=== PATIENT | male | born 1970 | race Two or more races ===

== ENCOUNTER 2017-06-10 10:27 | Day surgery (SDC) | payer BC ==
[2017-06-10] MEDS ORDERED: MORPHINE SULFATE PF 10 MG/10 ML AMPUL IV ONE (12:39)
[2017-06-10] MEDS ORDERED: BUPIVACAINE 0.25% 30 ML VIAL ONE (12:39)
[2017-06-10] MEDS ORDERED: ONDANSETRON 4 MG/2 ML VIAL IV ONE (13:32)
[2017-06-10] MEDS ORDERED: PROPOFOL 200 MG/20 ML BOTTLE IV ONE (13:32)
[2017-06-10] MEDS ORDERED: DEXAMETHASONE SOD PHOSPHATE 4 MG INJ IV ONE (13:32)
[2017-06-10] MEDS ORDERED: CEFAZOLIN 1 G VIAL MC ONE (13:32)
[2017-06-10] MEDS ORDERED: LIDOCAINE HCL 2% 20 ML VIAL MC ONE (13:32)
[2017-06-10] MEDS ORDERED: SEVOFLURANE 250 ML BOTTLE IH ONE (13:32)
[2017-06-10] MEDS ORDERED: SEVOFLURANE 250 ML BOTTLE ONE (14:10)
[2017-06-10] MEDS ORDERED: FENTANYL CITRATE 100 MCG/2 ML AMPUL ONE ×2 (15:30→15:38)
[2017-06-10] MEDS ORDERED: HYDROCODONE/APAP 5-325MG TABLET ONE (16:15)
[2017-06-10] MEDS ORDERED: ONDANSETRON 4 MG/2 ML VIAL ONE (16:23)
== END 2017-06-10 17:14 | disposition home or self-care (01) ==
LOC: DS 10:27
PROVIDERS: ATTEND Orthopaedic Surgery
DX: M23.222 Derangement of posterior horn of medial meniscus due to old tear or injury, left knee (principal); M22.42 Chondromalacia patellae, left knee; M23.8X2 Other internal derangements of left knee; I10 Essential (primary) hypertension; E66.9 Obesity, unspecified; Z98.890 Other specified postprocedural states
CPT/HCPCS: A4663; J0690; J1100; J2274; J2405; J3010; J3490